=== PATIENT | female | born 1980 | race Caucasian/White ===

== ENCOUNTER 2016-03-12 19:36 | Emergency (ER) | payer MEDICAID ==
[2016-03-12 20:24] LABS: APPEARANCE CLOUDY (CLEAR); BILIRUBIN NEGATIVE (NEGATIVE); COLOR YELLOW (YELLOW); GLUCOSE NEGATIVE (NEGATIVE); KETONE NEGATIVE (NEGATIVE); LEUKOCYTE ESTERASE TRACE (NEGATIVE); NITRITE NEGATIVE (NEGATIVE); PROTEIN NEGATIVE (NEGATIVE); SPECIFIC GRAVITY 1.025 (1.005-1.020)
[2016-03-12 20:25] LABS: BACTERIA MODERATE /hpf (NONE SEEN); HCG URINE NEGATIVE (NEGATIVE); MUCUS <1+ /lpf (NONE SEEN)
== END 2016-03-12 22:22 | disposition home or self-care (01) ==
LOC: D.ER 19:36
PROVIDERS: Family Medicine
DX: S39.012A Strain of muscle, fascia and tendon of lower back, initial encounter (principal); X50.0XXA Overexertion from strenuous movement or load, initial encounter; X50.9XXA Other and unspecified overexertion or strenuous movements or postures, initial encounter; Y93.89 Activity, other specified; Y92.89 Other specified places as the place of occurrence of the external cause

== ENCOUNTER 2016-04-15 18:33 | Emergency (ER) | payer MEDICAID | END 2016-04-15 20:05 | disposition home or self-care (01) | LOC: D.ER 18:33 | DX: G43.909 Migraine, unspecified, not intractable, without status migrainosus (principal) ==

== ENCOUNTER 2016-10-06 17:00 | Emergency (ER) | payer MEDICAID | END 2016-10-06 18:01 | disposition home or self-care (01) | LOC: D.ER 17:00 | DX: M54.16 Radiculopathy, lumbar region (principal) ==

== ENCOUNTER 2016-12-23 16:18 | Emergency (ER) | payer MEDICAID | END 2016-12-23 17:34 | disposition home or self-care (01) | LOC: D.ER 16:18 | DX: J02.9 Acute pharyngitis, unspecified (principal) ==

== ENCOUNTER 2017-07-24 18:48 | Emergency (ER) | payer MEDICAID ==
[~2017-07-24] VITALS: Ht 170.2 cm; Wt 88.6 kg
[2017-07-24 18:51] VITALS: Ht 170.2 cm; Wt 88.6 kg
[2017-07-24] MEDS ORDERED: CYCLOBENZAPRINE10 MG PO (21:24)
[2017-07-24] MEDS ORDERED: NAPROSYN500 MG PO (21:24)
[2017-07-24 21:50] VITALS: BP 130/84
== END 2017-07-24 21:51 | disposition home or self-care (01) ==
LOC: D.ER 18:48
DX: M62.830 Muscle spasm of back (principal); S39.012A Strain of muscle, fascia and tendon of lower back, initial encounter; X50.0XXA Overexertion from strenuous movement or load, initial encounter; Y93.89 Activity, other specified; Y92.019 Unspecified place in single-family (private) house as the place of occurrence of the external cause

== ENCOUNTER 2017-11-24 18:02 | Emergency (ER) | payer MEDICAID ==
[~2017-11-24] VITALS: Ht 170.2 cm; Wt 74.1 kg
[~2017-11-24 18:02] MED LIST: CYCLOBENZAPRINE10 MG PO; NAPROSYN500 MG PO
[2017-11-24 18:04] VITALS: Ht 170.2 cm; Wt 74.1 kg
[2017-11-24] MEDS ORDERED: ULTRAM50 MG PO (18:36)
[2017-11-24 19:02] VITALS: BP 128/87
== END 2017-11-24 19:03 | disposition home or self-care (01) ==
LOC: D.ER 18:02
DX: S93.402A Sprain of unspecified ligament of left ankle, initial encounter (principal); X50.1XXA Overexertion from prolonged static or awkward postures, initial encounter; Y93.89 Activity, other specified; Y92.019 Unspecified place in single-family (private) house as the place of occurrence of the external cause

== ENCOUNTER 2018-04-14 22:28 | Emergency (ER) | payer MEDICAID ==
[~2018-04-14] VITALS: Ht 170.2 cm; Wt 81.8 kg
[~2018-04-14 22:28] MED LIST changes: +ULTRAM50 MG PO
[2018-04-14 22:39] VITALS: Ht 170.2 cm; Wt 81.8 kg
[2018-04-15] MEDS ORDERED: VOLTAREN75 MG PO (00:11)
[2018-04-15 00:29] VITALS: BP 106/65
== END 2018-04-15 00:31 | disposition home or self-care (01) ==
LOC: D.ER 22:28
DX: M25.572 Pain in left ankle and joints of left foot (principal); M77.9 Enthesopathy, unspecified

== ENCOUNTER 2018-10-19 22:46 | Emergency (ER) | payer MEDICAID ==
[~2018-10-19] VITALS: Ht 170.2 cm; Wt 96.8 kg
[~2018-10-19 22:46] MED LIST changes: +VOLTAREN75 MG PO
[2018-10-19 22:51] VITALS: Ht 170.2 cm; Wt 96.8 kg
[2018-10-19 23:34] LABS: AMORPHOUS SEDIMENT <1+ /lpf (NONE SEEN); APPEARANCE HAZY (CLEAR); BACTERIA FEW /hpf (NONE SEEN); BILIRUBIN NEGATIVE (NEGATIVE); COLOR DK YELLOW (YELLOW); EPITHELIAL CELLS 0-5 /hpf (0-5); GLUCOSE NEGATIVE (NEGATIVE); HYALINE CAST OCC /lpf (NONE SEEN); KETONE SMALL mg/dL (NEGATIVE); NITRITE NEGATIVE (NEGATIVE); PROTEIN NEGATIVE (NEGATIVE); RED CELLS - URINE 0-5 /hpf (0-5); SPECIFIC GRAVITY 1.015 (1.005-1.020); UROBILINOGEN NORMAL (NORMAL); WHITE CELLS - URINE 0-5 /hpf (0-5)
[2018-10-19] MEDS ORDERED: DICLOFENAC SODI50 MG PO (23:45)
[2018-10-19 23:52] VITALS: BP 130/82
== END 2018-10-19 23:52 | disposition home or self-care (01) ==
LOC: D.ER 22:46
PROVIDERS: Family Medicine
DX: M54.5 Low back pain (principal)